=== PATIENT | female | born 1995 | race African-American/Black ===

== ENCOUNTER 2018-04-07 17:48 | Emergency (ER) | payer BC ==
[2018-04-07 18:42] VITALS: BP 118/51
--- NOTE | 2018-04-07 18:45 | UC ---
Throat Pain/Nasal Yakov HPI - HPI Summary HPI Summary: History of congestion, runny nose, cough and malaise for 2 days, denies fever. States her roommate has same symptoms. Denies PMH, LMD was 25 mar 2018 - History of Current Complaint Stated Complaint: SORE THROAT,COUGH,CONGESTION (X1 MONTH) Time Seen by Provider: 04/07/18 18:37 Hx Obtained From: Patient ?: No Onset/Duration: Sudden Onset, Lasting Days Severity: Moderate Cough: Nonproductive Associated Signs & Symptoms: Positive: Sinus Discomfort - Epiglottits Risk Factors Epiglottis Risk Factors: Negative - Allergies/Home Medications Allergies/Adverse Reactions: Allergies Allergy/AdvReac Type Severity Reaction Status Date / Time No Known Allergies Allergy Verified 04/07/18 18:42 Home Medications: Home Medications Norgestimate-Ethinyl Estradiol [Nzd-Ot-Lcnzoi 0.18/0.215/0.25 mg-25 Mcg] 1 tab PO DAILY 04/07/18 [History Confirmed 04/07/18] PMH/Surg Hx/FS Hx/Imm Hx Previously Healthy: Yes - Family History Known Family History: Positive: Hypertension - Social History Smoking Status (MU): Never Smoked Tobacco Review of Systems All Other Systems Reviewed And Are Negative: Yes ENT: Positive: Nasal Discharge Respiratory: Positive: Cough Is Patient Immunocompromised?: No Physical Exam Appearance: Well-Appearing, No Pain Distress, Obese Vital Signs Reviewed: Yes Eyes: Positive: Conjunctiva Clear ENT: Positive: Hearing grossly normal, Pharynx normal, TMs normal, Uvula midline Neck: Positive: Supple, Nontender, No Lymphadenopathy Respiratory: Positive: Chest non-tender, Lungs clear, Normal breath sounds, No respiratory distress Cardiovascular: Positive: RRR, No Murmur, Pulses Normal, Brisk Capillary Refill Abdomen Description: Positive: Nontender Throat Pain/Nasal Course/Dx - Course Course Of Treatment: patient has viral syndrome continue supportive care, po fluids, tylenol as needed, f/u with PCP for maintenance, rapid Influenza negative - Differential Dx/Diagnosis Provider Diagnoses: Viral URI Discharge - Sign-Out/Discharge Documenting (check all that apply): Patient Departure All imaging exams completed and their final reports reviewed: No Studies - Discharge Plan Condition: Stable Disposition: HOME Patient Education Materials: Acetaminophen (By mouth), Viral Syndrome (ED) Referrals: No Primary Care Phys,NOPCP [Primary Care Provider] - [facility] [Outside] - Billing Disposition and Condition Condition: STABLE Disposition: Home
== END 2018-04-07 20:20 | disposition home or self-care (01) ==
LOC: UCCORT 17:48
DX: J06.9 Acute upper respiratory infection, unspecified (principal)
CPT/HCPCS: 99201; G0463

== ENCOUNTER 2019-07-21 09:07 | Emergency (ER) | payer BC ==
[2019-07-21 09:38] VITALS: BP 106/60
--- NOTE | 2019-07-21 10:00 | UC ---
Complaint Female HPI - HPI Summary HPI Summary: Pt wants to be checked to see if vaginal tampon is in place or if she forgot to put one in. She reports being very anxious and cannot remember. currently on her period but denies pain or fever. also has many bc questions, currently on pills. - History Of Current Complaint Chief Complaint: [facility]CGU Stated Complaint: PERSONAL Time Seen by Provider: 07/21/19 09:32 Hx Obtained From: Patient Hx Last Menstrual Period: 07/20/19 Pain Intensity: 1 Aggravating Factor(s): Nothing Alleviating Factor(s): Nothing - Allergies/Home Medications Allergies/Adverse Reactions: Allergies Allergy/AdvReac Type Severity Reaction Status Date / Time No Known Allergies Allergy Verified 07/21/19 09:39 Home Medications: Home Medications Norgestimate-Ethinyl Estradiol [Ggd-Xe-Gkgmod 0.18/0.215/0.25 mg-25 Mcg] 1 tab PO DAILY 04/07/18 [History Confirmed 07/21/19] PMH/Surg Hx/FS Hx/Imm Hx - Additional Past Medical History Additional PMH: no c hronic ilness Previously Healthy: Yes - Surgical History Surgical History: Yes Surgery Procedure, Year, and Place: tumor/right breast benign 2010 - Family History Known Family History: Positive: Hypertension - Social History Alcohol Use: Occasionally Substance Use Type: None Smoking Status (MU): Never Smoked Tobacco Review of Systems All Other Systems Reviewed And Are Negative: Yes Constitutional: Negative: Fever Gastrointestinal: Negative: Abdominal Pain Genitourinary: Negative: Dysuria, Vaginal/Penile Discharge, Abnormal Bleeding Physical Exam Triage Information Reviewed: Yes Appearance: Well-Appearing Vital Signs: Initial Vital Signs Temp 98 F 07/21/19 09:34 Pulse 93 07/21/19 09:34 Resp 24 07/21/19 09:34 BP 106/60 07/21/19 09:34 Pulse Ox 99 07/21/19 09:34 Vital Signs Reviewed: Yes Respiratory: Positive: No respiratory distress Pelvic Exam: Positive: Speculum Exam Normal - no fb in vaginal area, menses noted, Blood - menses. Negative: Discharge Complaint Female Dx - Course Course Of Treatment: NO FB in vaginal canal as pt. feared and we had long discussion about control. she will think a bout which method is best for her. exam unremarkable. - Differential Dx/Diagnosis Differential Diagnosis/HQI/PQRI: Urinary Tract Infection, Other Provider Diagnosis: Worried well Discharge ED - Sign-Out/Discharge Documenting (check all that apply): Patient Departure All imaging exams completed and their final reports reviewed: No Studies - Discharge Plan Condition: Good Disposition: HOME Patient Education Materials: Intrauterine Device (DC) Referrals: No Primary Care Phys,NOPCP [Primary Care Provider] - Additional Instructions: return if new symptoms develop - Billing Disposition and Condition Condition: GOOD Disposition: Home - Attestation Statements Provider Attestation: Per institutional requirements, I have reviewed the chart, however, I was not consulted specifically or made aware of this patient by the midlevel provider. I did not personally evaluate, interact with, or disposition this patient. EK
== END 2019-07-21 10:18 | disposition home or self-care (01) ==
LOC: UCCORT 09:07
DX: Z71.1 Person with feared health complaint in whom no diagnosis is made (principal)
CPT/HCPCS: 99211; G0463